=== PATIENT | female | born 1950 | race Caucasian/White ===

== ENCOUNTER 2016-06-18 18:02 | Emergency (ER) | END 2016-06-18 23:16 | disposition home or self-care (01) | DX: F43.22 Adjustment disorder with anxiety (principal); R10.13 Epigastric pain; G44.219 Episodic tension-type headache, not intractable; I10 Essential (primary) hypertension; R40.2142 Coma scale, eyes open, spontaneous, at arrival to emergency department; R40.2252 Coma scale, best verbal response, oriented, at arrival to emergency department; R40.2362 Coma scale, best motor response, obeys commands, at arrival to emergency department | CPT/HCPCS: 71010; 80053; 81001; 83690; 84484; 85025; 93005; J1885; J2405; J7030; Z7610 ==

== ENCOUNTER 2019-01-13 19:43 | Observation (INO) | payer MEDICARE, OTHER ==
[~2019-01-13] VITALS: Ht 162.6 cm; Wt 94.9 kg
[~2019-01-13 19:43] MED LIST: AMLO-147 PO; LOSA1TAB28 PO
[2019-01-13] MEDS ORDERED: AMLODIPINE 10 MG TAB PO SCH (23:00)
[2019-01-13] MEDS ORDERED: NITROGLYCERIN (SL) 0.4 MG TAB SL PRN (23:00)
[2019-01-13] MEDS ORDERED: hydrALAzine 20 MG INJ IV PRN (23:00)
[2019-01-13] MEDS ORDERED: DOCUSATE SODIUM 100 MG CAP PO PRN (23:00)
[2019-01-13] MEDS ORDERED: ONDANSETRON 4 MG INJ IV PRN ×2 (23:00)
[2019-01-13] MEDS ORDERED: ACETAMINOPHEN 325 MG TAB PO PRN ×2 (23:00)
[2019-01-13] MEDS ORDERED: NACL 0.9% 3 ML SYG IV SCH (23:00)
[2019-01-13] MEDS ORDERED: BISACODYL (EC) 5 MG TAB PO PRN (23:00)
[2019-01-13] MEDS ORDERED: morphine 2 MG INJ IV PRN (23:00)
[2019-01-13] MEDS ORDERED: NON-FORMULARY/PATIENT OWN MED (Losartan-Hydrochlorothiazide (Losartan-HCTZ) 1 TAB) PO SCH (23:00)
[2019-01-14 03:00] VITALS: BP 175/92; PULSE 67; RESP 18
[2019-01-14] MEDS ORDERED: ALPRAZOLAM 0.25 MG TAB PO ONE (03:00)
[2019-01-14 03:19] VITALS: Ht 162.6 cm; Wt 94.9 kg
[2019-01-14] MEDS ORDERED: PANTOPRAZOLE (EC) 40 MG TAB PO ONE (04:00)
[2019-01-14 04:05] VITALS: BP 145/80; PULSE 71; RESP 18
[2019-01-14 07:52] VITALS: BP 151/72; PULSE 69; RESP 18
[2019-01-14] MEDS ORDERED: LOSARTAN 50 MG TAB PO SCH (09:00)
[2019-01-14] MEDS ORDERED: HYDROCHLOROTHIAZIDE 12.5 MG CAP PO SCH (09:00)
[2019-01-14] MEDS ORDERED: ASPIRIN 81 MG TAB PO SCH (09:00)
[2019-01-14] MEDS ORDERED: REGADENOSON 0.4 MG/5 ML SYG ONE (10:53)
[2019-01-14 11:21] VITALS: BP 136/77; PULSE 91; RESP 18
[2019-01-14 15:30] VITALS: BP 126/68; PULSE 77; RESP 18
== END 2019-01-14 17:45 | disposition home or self-care (01) ==
LOC: E/R 19:43 → 6WM 22:33
PROVIDERS: ADMIT Family Medicine; ATTEND Internal Medicine
DX: R07.9 Chest pain, unspecified (principal); I16.0 Hypertensive urgency; I10 Essential (primary) hypertension; E66.9 Obesity, unspecified; Z68.35 Body mass index [BMI] 35.0-35.9, adult; K21.9 Gastro-esophageal reflux disease without esophagitis
CPT/HCPCS: 36415; 71045; 78452; 80048; 80053; 82550; 82553; 83036; 83735; 84443; 84484; 85025; 93005; 93017; 93306; 99285; A9500; A9505; G0378; J0360; J2405; J2785